=== PATIENT | male | born 2000 | race Caucasian/White ===

== ENCOUNTER 2021-05-22 11:56 | Day surgery (SDC) | payer SELFPAY ==
[~2021-05-22] VITALS: Ht 188 cm; Wt 90.4 kg
[2021-05-22 12:29] VITALS: BP 116/68; PULSE 67; TEMP 97.5
[2021-05-22 15:25] VITALS: BP 145/81; PULSE 56; TEMP 97.5
--- NOTE | 2021-05-22 15:25 | NUR ---
PATIENT ARRIVED ON CART FROM PACU. PATIENT STATES URGE TO VOID. VITAL SIGNS OBTAINED AND ARE STABLE. RN HAD PATIENT SIT AT EDGE OF BED BEFORE AMBULATING TO BR WITH X1 ASSIST. STRONG FOOT PUSH NOTED. DENIES DIZZYNESS/LIGHTHEADEDNESS. STEADY GAIT, BALANCED. UNABLE TO VOID AT THIS TIME. DR CAME IN TO SPEAK WITH PATIENT ABOUT DRESSING CARE AND HOME INFORMATION.
[2021-05-22 15:40] VITALS: BP 129/79; PULSE 61
--- NOTE | 2021-05-22 15:40 | NUR ---
PATIENT AT A [facility]. DENIES N/V AND TOLERATED IT WELL. PATIENT HAS FINISHED A CUP OF WATER AND IS TOLERATING IT WELL. VITALS OBTAINED. PATIENT EXPRESSED DESIRE TO BE DISCHARGED, HOWEVER PATIENT HAS NOT VOIDED YET. PATIETN EDUCATED ON DISCHARGE PROTOCOL. WILL CONTINUE TO MONITOR.
[2021-05-22 15:55] VITALS: BP 127/80; PULSE 56
--- NOTE | 2021-05-22 15:55 | NUR ---
PATIENT AMBULATED TO WITH +1 ASSIST BY SAMANTHA HINES. WAS ABLE TO VOID. PATIENT EXPRESSED DESIRE TO BE DISCHARED AT THIS TIME. CRITERIA HAS BEEN MET. VITALS OBTAINED AND ARE STABLE. PATIENT HAS CALL [facility]. WILL CONTINUE TO MONITOR.
[2021-05-22 16:10] VITALS: BP 134/78; PULSE 56
--- NOTE | 2021-05-22 16:10 | NUR ---
PATIENT WAS INSTRUCTED TO GET DRESSED AFTER REVIEWING DISCHARGE INFORMATION. PATIENT VERBALIZED UNDERSTANDING OF DISCHARGE INFORMATION. IV WAS DISCONTINUED AT THIS TIME. VITALS OBTAINED AND REMAIN STABLE. CALL [facility] IS WITHIN REACH.
--- NOTE | 2021-05-22 16:25 | NUR ---
PATIENT WAS ESCORTED TO THE FRONT ENTRENCE WITH PARTNER BRANDIE BY SAMANTHA HINES. PATIENT DID NOT WANT TO USE WHEELCHAIR AND EXPRESSED DESIRE TO WALK. PATIENT HAS DISCHARE INFORMATION AND WAS TRANSFERRED INTO THE CARE OF A RESPONSIBLE ADULT WHO IS DRIVING PATIENT HOME. PATIENT HAS BELONGINGS.
== END 2021-05-22 16:25 | disposition home or self-care (01) ==
LOC: SDCO 11:56
DX: N47.1 Phimosis (principal); I89.0 Lymphedema, not elsewhere classified; F17.210 Nicotine dependence, cigarettes, uncomplicated; Z20.822 Contact with and (suspected) exposure to COVID-19
CPT/HCPCS: J0690; J1100; J1170; J1885; J2405; J2704; J3010; J7120